=== PATIENT | female | born 1935 | race Caucasian/White ===

== ENCOUNTER 2021-12-12 13:09 | Inpatient (IN) | payer MEDICARE ==
[~2021-12-12] VITALS: Ht 162.6 cm; Wt 42.2 kg
[2021-12-12] MEDS ORDERED: OLAN5TAB3 PO (13:36)
[2021-12-12] MEDS ORDERED: ASPI-1169 PO (13:36)
[2021-12-12] MEDS ORDERED: MULT-188 PO (13:36)
[2021-12-12] MEDS ORDERED: CHOL200013 PO (13:36)
[2021-12-12] MEDS ORDERED: DOCU-141 PO (13:36)
[2021-12-12] MEDS ORDERED: MIRT-121 PO (13:36)
[2021-12-12] MEDS ORDERED: QUET25TA PO (13:36)
[2021-12-12] MEDS ORDERED: SENN-175 PO (13:36)
[2021-12-12] MEDS ORDERED: TRAZ-182 PO (13:36)
[2021-12-12] MEDS ORDERED: LEVO75TA PO (13:36)
--- NOTE | 2021-12-12 14:30 | NUR ---
COVID SWAB DONE AND SENT TO LAB
--- NOTE | 2021-12-12 14:32 | NUR ---
COVID SWAB SENT TO LAB
--- NOTE | 2021-12-12 15:00 | NUR ---
pt resting and asleepy confused fallow command
[2021-12-12 15:06] LABS: BASOPHILS % (AUTO) 0.3 % (0.0-2.0); EOSINOPHILS % (AUTO) 1.1 % (0.0-6.0); HEMATOCRIT 39 % (33-45); HEMOGLOBIN 13.2 g/dL (11.5-14.8); LYMPHOCYTES # (AUTO) 1.6 K/uL (0.8-4.8); MEAN CORPUSCULAR HGB CONC 34 g/dl (31.0-36.0); MEAN CORPUSCULAR VOLUME 91 fL (82-100); MONOCYTES # (AUTO) 0.8 K/uL (0.1-1.30); MONOCYTES % (AUTO) 6.8 % (2.0-12.0); NEUTROPHILS # (AUTO) 9.6 K/uL (1.8-8.9); NEUTROPHILS % (AUTO) 78.8 % (43.0-81.0); PLATELET COUNT (AUTO) 257 K/uL (150-450); RED BLOOD CELL COUNT(AUTO) 4.27 MIL/uL (4.0-5.2); WHITE BLOOD COUNT (AUTO) 12.2 K/uL (4.3-11.0)
[2021-12-12 15:40] LABS: ALBUMIN 3.1 g/dL (3.4-5.0); BILIRUBIN,DIRECT 0.1 mg/dL (0.0-0.2); BILIRUBIN,TOTAL 0.3 mg/dL (0.2-1.0); BILIRUBIN,URINE NEGATIVE (NEGATIVE); CALCIUM, SERUM 8.6 mg/dL (8.5-10.1); CREATININE 0.6 mg/dL (0.6-1.3); LEUKOCYTE ESTERASE ,URINE 3+ (NEGATIVE); NITRITE, URINE NEGATIVE (NEGATIVE); POTASSIUM 4.5 mmol/L (3.5-5.1); PROTEIN,URINE NEGATIVE (NEGATIVE); UGLUCOSE NEGATIVE (NEGATIVE)
[2021-12-12 15:49] LABS: COLOR,URINE YELLOW (YELLOW)
--- NOTE | 2021-12-12 16:00 | NUR ---
PT HANGERY SWALLOW WILL NO DIFECULTY no aspiration
[2021-12-12 16:15] LABS: RBC,URINE 0-2 /HPF (0-2); WBC,URINE 51-80 /HPF (0-3)
[2021-12-12 16:16] LABS: BACTERIA,URINE 4+ /HPF (None Seen); SQUAMOUS EPITHELIAL CELL,UR 0-2 /HPF (None Seen)
[2021-12-12] MEDS ORDERED: AZITHROMYCIN 500 MG in IV D5W 250 ML IV ONE (16:30)
[2021-12-12] MEDS ORDERED: CEFTRIAXONE 1GM BAG (ER ONLY) 1 GM/50 ML PIGGYBACK IV ONE (16:30)
--- NOTE | 2021-12-12 17:35 | NUR ---
HOLD ROCEPHINE UNTILL BLOOD CUTURE ORDER AND BLOOD TO DROW
--- NOTE | 2021-12-12 17:50 | NUR ---
BLOOD CULTURE X 2 BLOOD DROW BY LAB TACH at bed side ressume ROCEPHINE TO COMPLETED
--- NOTE | 2021-12-12 19:15 | NUR ---
HAND OFF MAUDE GLORIA
[2021-12-12] MEDS ORDERED: MAGNESIUM HYDROXIDE 30 ML UDC PO PRN (19:30)
[2021-12-12] MEDS ORDERED: ACETAMINOPHEN 325 MG TABLET PO PRN (19:30)
[2021-12-12] MEDS ORDERED: ONDANSETRON HCL/PF 4 MG/2 ML VIAL IVP PRN (19:30)
[2021-12-12] MEDS ORDERED: MAG HYDROX/AL HYDROX/SIMETH 30 ML UDC PO PRN (19:30)
[2021-12-12] MEDS ORDERED: Z GUARD REMEDY 4 OZ OINT TP PRN (19:30)
[2021-12-12] MEDS ORDERED: ZOLPIDEM TARTRATE 5 MG TABLET PO PRN (19:30)
--- NOTE | 2021-12-12 21:20 | NUR ---
REPORT GIVEN TO BROCK, RN FOR ADELE
[2021-12-12 21:29] VITALS: BP 153/85
--- NOTE | 2021-12-12 21:36 | NUR ---
PT TRANSFERRED TO 322-2 VIA ACLS PROTOCOL. VSS. ALL BELONGINGS WITH PT.
--- NOTE | 2021-12-12 21:50 | NUR ---
COMMERCIAL ELECTRICIANCUSTOMER PROJECT MANAGER NOTES RECEIVED PATIENT FROM ED VIA GURNEY AT 212 UNDER THE CARE OF DR. GUY WITH DX OF FTT, PNA AND UTI. PATIENT IS A/O X1, CONFUSED BUT VERY PLEASANT. PATIENT IS A POOR HISTORIAN AND ALL ADMISSION INFO TAKEN FROM MEDICAL RECORDS. ATTEMPTED TO CALL [facility] AT [phone] AND [phone] TO NO AVAIL. NO NEXT OF KIN LISTED. V/S TAKEN AND WNL. BREATHING EVEN AND NON-LABORED ON ROOM AIR. NOT IN APPARENT DISTRESS. DENIES PAIN AT THIS TIME. HAS RIGHT FOREARM IV ACCESS #20G AND SALINE LOCKED. NO S/S OF INFILTRATION NOTED. SKIN ASSESSMENT DONE AND PHOTOS TAKEN. SNACKS PROVIDED. ORIENTED PATIENT TO UNIT AND STAFF. ALL BELONGINGS ACCOUNTED FOR. SAFETY PRECAUTIONS IN PLACE: BED LOW AND LOCKED, SIDE RAILS UP X2, CALL LIGHT WITHIN REACH. WILL CONTINUE POC.
[2021-12-12] MEDS: SENNOSIDES 8.6 MG TABLET PO SCH (22:30)
[2021-12-12] MEDS: TRAZODONE 50 MG TABLET PO SCH (22:30)
[2021-12-12] MEDS: QUETIAPINE FUMARATE 25 MG TABLET PO SCH (22:30)
[2021-12-12] MEDS: MIRTAZAPINE 15 MG TABLET PO SCH (22:30)
[2021-12-12] MEDS: OLANZAPINE 5 MG TABLET PO SCH (22:30)
[2021-12-12] MEDS: IV D5/0.45 NACL 1,000 ML IV PRN (22:44)
[2021-12-13] VITALS: BP 115/70
[2021-12-13 04:32] VITALS: BP 131/82
[2021-12-13 06:41] LABS: BASOPHILS % (AUTO) 0.2 % (0.0-2.0); EOSINOPHILS % (AUTO) 1.5 % (0.0-6.0); HEMATOCRIT 33 % (33-45); HEMOGLOBIN 11.4 g/dL (11.5-14.8); LYMPHOCYTES # (AUTO) 1.4 K/uL (0.8-4.8); LYMPHOCYTES % (AUTO) 17.8 % (20.0-44.0); MEAN CORPUSCULAR HGB CONC 34 g/dl (31.0-36.0); MEAN CORPUSCULAR VOLUME 91 fL (82-100); MONOCYTES # (AUTO) 0.5 K/uL (0.1-1.30); MONOCYTES % (AUTO) 5.7 % (2.0-12.0); NEUTROPHILS % (AUTO) 74.8 % (43.0-81.0); PLATELET COUNT (AUTO) 244 K/uL (150-450); RED BLOOD CELL COUNT(AUTO) 3.63 MIL/uL (4.0-5.2)
--- NOTE | 2021-12-13 06:57 | NUR ---
ORGANIZATIONAL EFFECTIVENESS DIRECTOR CLOSING NOTES PATIENT LAYING COMFORTABLY IN BED. A/O X1, CONFUSED. FREQUENT RE-ORIENTATION NEEDED. NO SOB OR NOTED, TOLERATING ROOM AIR WELL. NOT IN ACUTE DISTRESS. NO C/O PAIN OR DISCOMFORT. AFEBRILE. ON TELE MONITOR READING SINUS RHYTHM AT 79 BPM. HAS RIGHT FOREARM IV ACCESS #20G WITH D5 1/2 NS RUNNING AT 75 ML/HR. INTACT, PATENT AND FLUSHING. ALL DUE MEDS GIVEN AND NEEDS ATTENDED. SAFETY PRECAUTIONS MAINTAINED. WILL ENDORSE TO NEXT SHIFT FOR ADELE.
[2021-12-13 07:11] LABS: CALCIUM, SERUM 8.3 mg/dL (8.5-10.1); CARBON DIOXIDE 26 mmol/L (21-32); CHLORIDE 108 mmol/L (98-107); CREATININE 0.5 mg/dL (0.6-1.3); GLUCOSE 94 mg/dL (74-106); MAGNESIUM 1.7 mg/dL (1.8-2.4); PHOSPHORUS 3.7 mg/dL (2.5-4.9); POTASSIUM 3.9 mmol/L (3.5-5.1); SODIUM SERUM 143 mmol/L (136-145); UREA NITROGEN, BLOOD 18 mg/dL (7-18)
[2021-12-13] MEDS: PANTOPRAZOLE 40 MG TABLET.DR PO SCH (07:18)
[2021-12-13] MEDS: LEVOTHYROXINE SODIUM 88 MCG TABLET PO SCH (07:18)
[2021-12-13 07:26] LABS: THYROID STIMULATING HORMONE 0.924 uIU/mL (0.358-3.74)
--- NOTE | 2021-12-13 07:38 | NUR ---
HANDLE MACHINE OPERATOR OPENING NOTES RECEIVED PATIENT AWAKE IN BED. PATIENT IS A/O X1, WITH CONFUSION. REORIENT THE PATIENT.NO SOB NOTED, TOLERATING ROOM AIR WELL. NO PAIN OR DISCOMFORT NOTED. AFEBRILE. ON TELE MONITOR READING SINUS RHYTHM . RIGHT FOREARM IV ACCESS #20G WITH D5 1/2 NS RUNNING AT 75 ML/HR. INTACT, PATENT AND FLUSHING. ALL SAFETY PRECAUTIONS MAINTAINED. WILL CONTINUE TO MONITOR CLOSELY.
[2021-12-13 08:11] VITALS: BP 152/88
[2021-12-13] MEDS: ASPIRIN 81 MG TAB.CHEW PO SCH (09:05)
[2021-12-13] MEDS: MULTIVIT W/MINERALS 1 TAB TABLET PO SCH (09:05)
[2021-12-13] MEDS: DOCUSATE SODIUM 100 MG CAPSULE PO SCH ×2 (09:06→16:02)
[2021-12-13] MEDS: OLANZAPINE 5 MG TABLET PO SCH ×2 (09:06→21:10)
[2021-12-13] MEDS: CHOLECALCIFEROL 1,000 UNIT TABLET (VIT D3) PO SCH (09:07)
[2021-12-13] MEDS ORDERED: MAGNESIUM OXIDE 400 MG TABLET PO ONE (10:00)
--- NOTE | 2021-12-13 11:49 | NUR ---
REFERENCE SERVICES HEAD NOTE SPOKE WITH KITA OF [facility] AND [facility] AND SAID THAT SHE WILL FAX PATIENT'S POLST ONCE SHE GETS TO THE FACILITY. ENDORSED ACCORDINGLY.
[2021-12-13] MEDS: IV D5/0.45 NACL 1,000 ML IV PRN (13:02)
--- NOTE | 2021-12-13 14:40 | NUR ---
Stonemason Supervisor Consult SW received a consult request for no next of kin. Pt. is a 86 y.o. white female who was admitted for pneumonia. ISABEL met with pt. at bedside. Pt. was unresponsive and SW got support from nurse Flores to wake pt. Pt. was awake is alert and oriented x1. Pt. appeared confused and disoriented was unable answer questions. SW inquired re next of kin/ family or friends that she might provide information for but pt. was unable to respond. ISABEL discussed with nurse Flores that staff have been attempting to contact her facility for more information. SW called [facility] ([phone]) and obtained contact information for pt.'s power of estate planning attorney (Estrellita Carey [phone]) and was informed that she [place] out of [place]. ISABEL discussed plan with nurse in which she was agreeable.
[2021-12-13] MEDS: CEFTRIAXONE 1 G in IV D5W 50 ML IV SCH (15:28)
[2021-12-13] MEDS: AZITHROMYCIN 500 MG in IV D5W 250 ML IV SCH (16:02)
[2021-12-13 16:38] VITALS: BP 132/68
[2021-12-13] MEDS: ENSURE ENLIVE 237 ML LIQUID (VANILLA) PO SCH ×2 (17:29→17:59)
--- NOTE | 2021-12-13 18:00 | NUR ---
RN NOTES CALLED [facility] WITH PHONE NUMBER [phone] AT 1000 AM TO GET INFORMATION ABOUT THE PATIENT'S VACCINATION RECORDS AND POLST STATUS AND LEFT MASSAGE, NO ONE CALLED BACK TILL 1812.
--- NOTE | 2021-12-13 18:32 | NUR ---
MAINTENANCE OPERATOR CLOSING NOTES PATIENT AWAKE IN BED. PATIENT IS A/O X1, WITH CONFUSION. REORIENT THE PATIENT.NO SOB NOTED, TOLERATING ROOM AIR WELL. NO PAIN OR DISCOMFORT NOTED. AFEBRILE. ON TELE MONITOR READING SINUS RHYTHM . RIGHT FOREARM IV ACCESS #24G WITH D5 1/2 NS RUNNING AT 75 ML/HR. INTACT, PATENT AND FLUSHING. ALL DUE MEDS GIVEN ORDERED. KEPT HOB ELEVATE DFOR ASPIRATION PRECAUTION. ALL SAFETY PRECAUTIONS MAINTAINED. BED LOCKED IN THE LOWEST POSITION. CALL LIGHT AND TABLE IN EASY REACH, BED ALARM ON. WILL ENDORSE FOR ADELE.
--- NOTE | 2021-12-13 19:30 | NUR ---
SYSTEM CONFIGURATION SPECIALIST OPENING NOTE RECEIVED PT AWAKE IN BED. A/O X1 WITH EPISODES OF CONFUSION AND ABLE TO MAKE NEEDS KNOWN. PT STABLE ON ROOM AIR. NO SOB OR S/S OF REPSIRATORY DISTRESS. BREATHING EVEN AND UNLABORED. ON EXTERNAL DEPUTY CHIEF COUNSEL READING SR. IV ACCESS RFA 20G RUNNING D5 1/2 NS @ 75 ML/HR, INTACT AND PATENT. SAFETY PRECAUTIONS IN PLACE. BED IN LOWEST LOCKED POSITION, HOB ELEVATED 40 DEGREES, SIDE RAILS UP X3, AND CALL LIGHT AND TABLE WITHIN REACH. ALL NEEDS MET AT THIS TIME.
[2021-12-13 20:00] VITALS: BP 134/52
[2021-12-13] MEDS: TRAZODONE 50 MG TABLET PO SCH (21:10)
[2021-12-13] MEDS: QUETIAPINE FUMARATE 25 MG TABLET PO SCH (21:10)
[2021-12-13] MEDS: ENOXAPARIN SODIUM 40 MG/0.4 ML DISP.SYRIN SQ SCH (21:10)
[2021-12-13] MEDS: MIRTAZAPINE 15 MG TABLET PO SCH (21:10)
[2021-12-13] MEDS: SENNOSIDES 8.6 MG TABLET PO SCH (21:10)
[2021-12-14] VITALS: BP 165/85
--- NOTE | 2021-12-14 00:53 | NUR ---
RN NOTE PT NOTED WITH BP 165/85 AND HR SUSTAINED IN THE 120S. ALSO NOTED WITH JVD. NO SOB OR ACUTE DISTRESS NOTED. HELD IVF FOR NOW. INFORMED DROP WIRER KAILYN WITH NEW ORDER FOR METOPROLOL TARTRATE 25 MG PO ONCE. ADMINISTERED MEDICATION ORDERED. WILL CONTINUE TO MONITOR.
[2021-12-14] MEDS ORDERED: METOPROLOL SUCCINATE 25 MG TAB.SR.24H PO ONE (01:00)
[2021-12-14] MEDS ORDERED: METOPROLOL TARTRATE 25 MG TABLET PO ONE (01:00)
--- NOTE | 2021-12-14 02:17 | NUR ---
RN NOTE CURRENT BP 154/84 AND HR SR 86. JVD DECREASED. IVF STILL ON HOLD. CHARGE NURSE JOSEY PRATER.
[2021-12-14 04:00] VITALS: BP 156/90
[2021-12-14 06:14] LABS: BASOPHILS % (AUTO) 0.1 % (0.0-2.0); HEMATOCRIT 39 % (33-45); HEMOGLOBIN 13.1 g/dL (11.5-14.8); LYMPHOCYTES # (AUTO) 0.6 K/uL (0.8-4.8); LYMPHOCYTES % (AUTO) 3.7 % (20.0-44.0); MEAN CORPUSCULAR HGB CONC 34 g/dl (31.0-36.0); MEAN CORPUSCULAR VOLUME 90 fL (82-100); MONOCYTES # (AUTO) 0.3 K/uL (0.1-1.30); MONOCYTES % (AUTO) 1.8 % (2.0-12.0); NEUTROPHILS # (AUTO) 15.6 K/uL (1.8-8.9); NEUTROPHILS % (AUTO) 94.4 % (43.0-81.0); PLATELET COUNT (AUTO) 289 K/uL (150-450); WHITE BLOOD COUNT (AUTO) 16.5 K/uL (4.3-11.0)
--- NOTE | 2021-12-14 06:41 | NUR ---
HAND I THERMAL CUTTER CLOSING NOTE PT AWAKE IN BED. A/O X1 WITH EPISODES OF CONFUSION AND ABLE TO MAKE NEEDS KNOWN. PT STABLE ON ROOM AIR. NO SOB OR S/S OF RESPIRATORY DISTRESS. BREATHING EVEN AND UNLABORED. ON EXTERNAL REVENUE OFFICER READING SR 94 BPM. IV ACCESS RFA 20G, INTACT AND PATENT. ALL DUE MEDS GIVEN ORDERED. KEPT CLEAN AND DRY. TURNED AND REPOSITIONED Q2H. SAFETY PRECAUTIONS IN PLACE AT ALL TIMES. BED IN LOWEST LOCKED POSITION, HOB ELEVATED 40 DEGREES, SIDE RAILS UP X3, AND CALL LIGHT AND TABLE WITHIN REACH. ALL NEEDS MET AT THIS TIME AND WILL ENDORSE TO ONCOMING NURSE FOR ADELE.
[2021-12-14 06:49] LABS: CALCIUM, SERUM 8.9 mg/dL (8.5-10.1); CREATININE 0.7 mg/dL (0.6-1.3); MAGNESIUM 1.6 mg/dL (1.8-2.4); PHOSPHORUS 3.7 mg/dL (2.5-4.9); POTASSIUM 4.3 mmol/L (3.5-5.1)
[2021-12-14 08:00] VITALS: BP 155/84
[2021-12-14] MEDS: PANTOPRAZOLE 40 MG TABLET.DR PO SCH (08:20)
[2021-12-14] MEDS: LEVOTHYROXINE SODIUM 88 MCG TABLET PO SCH (08:20)
[2021-12-14] MEDS: ENSURE ENLIVE 237 ML LIQUID (VANILLA) PO SCH ×3 (08:23→18:10)
[2021-12-14] MEDS: OLANZAPINE 5 MG TABLET PO SCH ×2 (08:28→21:06)
[2021-12-14] MEDS: MULTIVIT W/MINERALS 1 TAB TABLET PO SCH (08:28)
[2021-12-14] MEDS: DOCUSATE SODIUM 100 MG CAPSULE PO SCH ×2 (08:28→16:53)
[2021-12-14] MEDS: ASPIRIN 81 MG TAB.CHEW PO SCH (08:29)
[2021-12-14] MEDS: CHOLECALCIFEROL 1,000 UNIT TABLET (VIT D3) PO SCH (08:29)
[2021-12-14] MEDS ORDERED: MAGNESIUM OXIDE 400 MG TABLET PO ONE (11:00)
[2021-12-14 12:00] VITALS: BP 132/79
--- NOTE | 2021-12-14 14:49 | NUR ---
COSMETIC MANAGER OPENING NOTE RECEIVED PT AWAKE IN BED. A/O X1 WITH EPISODES OF CONFUSION AND ABLE TO MAKE NEEDS KNOWN. PT STABLE ON ROOM AIR. NO SOB OR S/S OF RESPIRATORY DISTRESS. BREATHING EVEN AND UNLABORED. ON EXTERNAL STAINED GLASS INSTALLER READING SR. WITH IV ACCESS RFA INTACT AND PATENT. SAFETY PRECAUTIONS IN PLACE. BED IN LOWEST LOCKED POSITION, HOB ELEVATED 40 DEGREES, SIDE RAILS UP X3, AND CALL LIGHT AND TABLE WITHIN REACH. ALL NEEDS MET AT THIS TIME.WILL MONITOR. Addendum: 12/14/21 at 1901 by LAITH PRINGLE RN CORRECT TIME OF NOTE IS 0730.
--- NOTE | 2021-12-14 15:19 | NUR ---
PERSONNEL ASSOCIATE NOTES RECEIVED PT'S POL FROM [facility], SPOKE WITH ABBY, PT IS DNR/DNI, DR. GUY INFORMED AND ORDERED DNR/DNI, NOTED AND CARRIED OUT, CO-SIGNED WITH A 2ND RN.
[2021-12-14] MEDS: CEFTRIAXONE 1 G in IV D5W 50 ML IV SCH (15:32)
[2021-12-14 16:00] VITALS: BP 151/76
[2021-12-14] MEDS: AZITHROMYCIN 500 MG in IV D5W 250 ML IV SCH (16:48)
[2021-12-14] MEDS ORDERED: hydrALAZINE HCL 25 MG TABLET PO PRN (18:00)
--- NOTE | 2021-12-14 18:38 | NUR ---
FAA CERTIFIED POWERPLANT MECHANIC OPENING NOTE PT IN BED. A/O X1 WITH EPISODES OF CONFUSION AND ABLE TO MAKE NEEDS KNOWN. PT STABLE ON ROOM AIR. NO SOB OR S/S OF RESPIRATORY DISTRESS. BREATHING EVEN AND UNLABORED. ON EXTERNAL BLEACH SUPERVISOR READING SR. WITH IV ACCESS RFA INTACT AND PATENT. DUE MEDS GIVEN. KEPT COMFORTABLE. SAFETY PRECAUTIONS IN PLACE. BED IN LOWEST LOCKED POSITION, HOB ELEVATED 40 DEGREES, SIDE RAILS UP X3, AND CALL LIGHT AND TABLE WITHIN REACH. ALL NEEDS MET AT THIS TIME. ENDORSED TO INCOMING NURSE. Addendum: 12/14/21 at 1901 by LAITH PRINGLE RN CLOSING NOTE
--- NOTE | 2021-12-14 19:30 | NUR ---
BATTERY CONTAINER FINISHING HAND OPENING NOTE RECEIVED PT AWAKE IN BED. A/O X1 WITH EPISODES OF CONFUSION AND ABLE TO MAKE NEEDS KNOWN. PT STABLE ON ROOM AIR. NO SOB OR S/S OF RESPIRATORY DISTRESS. BREATHING EVEN AND UNLABORED. ON EXTERNAL CLAY ARTISAN READING SR. IV ACCESS RFA 20G RUNNING D5 1/2 NS @ 75 ML/HR, INTACT AND PATENT. SAFETY PRECAUTIONS IN PLACE. BED IN LOWEST LOCKED POSITION, HOB ELEVATED 40 DEGREES, SIDE RAILS UP X3, AND CALL LIGHT AND TABLE WITHIN REACH. ALL NEEDS MET AT THIS TIME.
[2021-12-14 20:00] VITALS: BP_SYST 113; BP_SYST 130; BP_DIAS 39; BP_DIAS 76
[2021-12-14] MEDS: QUETIAPINE FUMARATE 25 MG TABLET PO SCH (21:06)
[2021-12-14] MEDS: SENNOSIDES 8.6 MG TABLET PO SCH (21:06)
[2021-12-14] MEDS: TRAZODONE 50 MG TABLET PO SCH (21:06)
[2021-12-14] MEDS: MIRTAZAPINE 15 MG TABLET PO SCH (21:07)
[2021-12-14] MEDS: ENOXAPARIN SODIUM 40 MG/0.4 ML DISP.SYRIN SQ SCH (21:08)
[2021-12-15] VITALS: BP 157/57
[2021-12-15 04:00] VITALS: BP 137/86
--- NOTE | 2021-12-15 06:42 | NUR ---
VACUUM TESTER CANS CLOSING NOTE PT AWAKE IN BED. A/O X1 WITH EPISODES OF CONFUSION AND ABLE TO MAKE NEEDS KNOWN. PT STABLE ON ROOM AIR. NO SOB OR S/S OF RESPIRATORY DISTRESS. BREATHING EVEN AND UNLABORED. ON EXTERNAL NICKEL OPERATOR READING SR 81 BPM. IV ACCESS RFA 20G, INTACT AND PATENT. ALL DUE MEDS GIVEN ORDERED. KEPT CLEAN AND DRY. TURNED AND REPOSITIONED Q2H. SAFETY PRECAUTIONS IN PLACE AT ALL TIMES. BED IN LOWEST LOCKED POSITION, HOB ELEVATED 40 DEGREES, SIDE RAILS UP X3, AND CALL LIGHT AND TABLE WITHIN REACH. ALL NEEDS MET AT THIS TIME AND WILL ENDORSE TO ONCOMING NURSE FOR ADELE.
[2021-12-15 06:58] LABS: CALCIUM, SERUM 8.6 mg/dL (8.5-10.1); CREATININE 0.6 mg/dL (0.6-1.3); MAGNESIUM 2.2 mg/dL (1.8-2.4); PHOSPHORUS 3.7 mg/dL (2.5-4.9); POTASSIUM 3.7 mmol/L (3.5-5.1)
--- NOTE | 2021-12-15 07:00 | NUR ---
ELECTRICAL POWER ENGINEER OPENING NOTES PATIENT LAYING IN BED, A/O X 1, TOLERATING WELL ON ROOM AIR WITH NO S/S RESPIRATORY DISTRESS. NO COMPLAINTS OF PAIN OR DISCOMFORT AT THIS TIME. TELE MONITOR IN PLACE READING SR 67. R FA # 20 G IV CLEAN, INTACT, AND INFUSING D5 1/2 NS @ 75 ML/HR. SAFETY MEASURES IN PLACE: BED IN LOWEST LOCKED POSITION, SIDE RAILS UP X 2, CALL LIGHT WITHIN REACH. WILL CONTINUE TO MONITOR.
[2021-12-15 07:15] LABS: BASOPHILS % (AUTO) 0.2 % (0.0-2.0); EOSINOPHILS % (AUTO) 0.5 % (0.0-6.0); HEMATOCRIT 36 % (33-45); HEMOGLOBIN 12.1 g/dL (11.5-14.8); LYMPHOCYTES # (AUTO) 1.4 K/uL (0.8-4.8); LYMPHOCYTES % (AUTO) 14.1 % (20.0-44.0); MEAN CORPUSCULAR HGB CONC 33 g/dl (31.0-36.0); MEAN CORPUSCULAR VOLUME 94 fL (82-100); MONOCYTES # (AUTO) 0.6 K/uL (0.1-1.30); MONOCYTES % (AUTO) 6.3 % (2.0-12.0); NEUTROPHILS # (AUTO) 7.6 K/uL (1.8-8.9); NEUTROPHILS % (AUTO) 78.9 % (43.0-81.0); PLATELET COUNT (AUTO) 266 K/uL (150-450); RED BLOOD CELL COUNT(AUTO) 3.84 MIL/uL (4.0-5.2); WHITE BLOOD COUNT (AUTO) 9.7 K/uL (4.3-11.0)
[2021-12-15] MEDS: ENSURE ENLIVE 237 ML LIQUID (VANILLA) PO SCH ×3 (07:47→17:13)
[2021-12-15] MEDS: LEVOTHYROXINE SODIUM 88 MCG TABLET PO SCH (07:47)
[2021-12-15] MEDS: PANTOPRAZOLE 40 MG TABLET.DR PO SCH (07:47)
[2021-12-15 08:00] VITALS: BP 151/79
[2021-12-15] MEDS: MULTIVIT W/MINERALS 1 TAB TABLET PO SCH (08:15)
[2021-12-15] MEDS: OLANZAPINE 5 MG TABLET PO SCH ×2 (08:15→21:23)
[2021-12-15] MEDS: ASPIRIN 81 MG TAB.CHEW PO SCH (08:15)
[2021-12-15] MEDS: CHOLECALCIFEROL 1,000 UNIT TABLET (VIT D3) PO SCH (08:15)
[2021-12-15] MEDS: DOCUSATE SODIUM 100 MG CAPSULE PO SCH ×2 (08:15→16:15)
[2021-12-15 12:00] VITALS: BP 129/79
[2021-12-15] MEDS: CEFTRIAXONE 1 G in IV D5W 50 ML IV SCH (15:24)
[2021-12-15 16:00] VITALS: BP 144/80
[2021-12-15] MEDS: AZITHROMYCIN 500 MG in IV D5W 250 ML IV SCH (16:14)
--- NOTE | 2021-12-15 19:00 | NUR ---
COMMUNICATION ELECTRONIC TECHNICIAN CLOSING NOTES PATIENT LAYING IN BED, A/O X 1, TOLERATING WELL ON ROOM AIR WITH NO S/S RESPIRATORY DISTRESS. NO COMPLAINTS OF PAIN OR DISCOMFORT AT THIS TIME. TELE MONITOR IN PLACE READING SR. NO IV ACCESS AT THIS TIME, WILL ENDORSE TO MECHANICAL DESIGNER. SAFETY MEASURES IN PLACE: BED IN LOWEST LOCKED POSITION, SIDE RAILS UP X 2, CALL LIGHT WITHIN REACH. ALL NEEDS MET. WILL ENDORSE TO MECHANICAL DESIGNER FOR ADELE.
--- NOTE | 2021-12-15 19:30 | NUR ---
DOCUMENT PHOTOGRAPHER OPENING NOTE RECEIVED PT AWAKE IN BED. A/O X1 WITH EPISODES OF CONFUSION AND ABLE TO MAKE NEEDS KNOWN. PT STABLE ON ROOM AIR. NO SOB OR S/S OF RESPIRATORY DISTRESS. BREATHING EVEN AND UNLABORED. ON EXTERNAL CERTIFIED WELLNESS PROGRAM COORDINATOR READING SR. NO IV ACCESS AT THIS TIME DUE TO INFILTRATION, WILL REINSERT. SAFETY PRECAUTIONS IN PLACE. BED IN LOWEST LOCKED POSITION, HOB ELEVATED 40 DEGREES, SIDE RAILS UP X3, AND CALL LIGHT AND TABLE WITHIN REACH. ALL NEEDS MET AT THIS TIME.
[2021-12-15 20:00] VITALS: BP 103/69
[2021-12-15] MEDS: SENNOSIDES 8.6 MG TABLET PO SCH (21:23)
[2021-12-15] MEDS: MIRTAZAPINE 15 MG TABLET PO SCH (21:23)
[2021-12-15] MEDS: TRAZODONE 50 MG TABLET PO SCH (21:23)
[2021-12-15] MEDS: QUETIAPINE FUMARATE 25 MG TABLET PO SCH (21:23)
[2021-12-15] MEDS: ENOXAPARIN SODIUM 40 MG/0.4 ML DISP.SYRIN SQ SCH (21:24)
[2021-12-16] VITALS: BP 134/77
[2021-12-16 04:00] VITALS: BP 136/72
--- NOTE | 2021-12-16 06:44 | NUR ---
REPAIR TABLE OPERATOR CLOSING NOTE PT AWAKE IN BED. A/O X1 WITH EPISODES OF CONFUSION AND ABLE TO MAKE NEEDS KNOWN. PT STABLE ON ROOM AIR. NO SOB OR S/S OF RESPIRATORY DISTRESS. BREATHING EVEN AND UNLABORED. ON EXTERNAL STAGE RIGGER READING SR 68 BPM. IV ACCESS LFA 20G, INTACT AND PATENT. ALL DUE MEDS GIVEN ORDERED. SAFETY PRECAUTIONS IN PLACE AT ALL TIMES. BED IN LOWEST LOCKED POSITION, HOB ELEVATED 40 DEGREES, SIDE RAILS UP X3, AND CALL LIGHT AND TABLE WITHIN REACH. ALL NEEDS MET AT THIS TIME AND WILL ENDORSE TO ONCOMING NURSE FOR ADELE.
[2021-12-16 06:59] LABS: BASOPHILS % (AUTO) 0.3 % (0.0-2.0); HEMATOCRIT 32 % (33-45); HEMOGLOBIN 10.8 g/dL (11.5-14.8); LYMPHOCYTES # (AUTO) 2.2 K/uL (0.8-4.8); LYMPHOCYTES % (AUTO) 20.5 % (20.0-44.0); MEAN CORPUSCULAR HGB CONC 34 g/dl (31.0-36.0); MEAN CORPUSCULAR VOLUME 94 fL (82-100); MONOCYTES # (AUTO) 0.7 K/uL (0.1-1.30); MONOCYTES % (AUTO) 6.3 % (2.0-12.0); NEUTROPHILS # (AUTO) 7.5 K/uL (1.8-8.9); NEUTROPHILS % (AUTO) 70.9 % (43.0-81.0); PLATELET COUNT (AUTO) 246 K/uL (150-450); RED BLOOD CELL COUNT(AUTO) 3.45 MIL/uL (4.0-5.2); WHITE BLOOD COUNT (AUTO) 10.6 K/uL (4.3-11.0)
--- NOTE | 2021-12-16 07:20 | NUR ---
BIOPSYCHOLOGIST OPENING NOTES RECEIVED PATIENT AWAKE IN BED. PATIENT IS A/O X1, WITH CONFUSION. REORIENT THE PATIENT.NO SOB NOTED, TOLERATING ROOM AIR WELL. NO PAIN OR DISCOMFORT NOTED. AFEBRILE. ON TELE MONITOR READING SINUS RHYTHM . LEFT FOREARM IV ACCESS #20G WITH D5 1/2 NS RUNNING AT 75 ML/HR. INTACT, PATENT AND FLUSHING WELL. ALL SAFETY PRECAUTIONS MAINTAINED. BED LOCKED IN THE LOWEST POSITION. CALL LIGHT AND TABLE IN EASY REACH. SIDE RAILS UP TIMES 2. WILL CONTINUE TO MONITOR CLOSELY.
[2021-12-16 07:28] LABS: CALCIUM, SERUM 8.2 mg/dL (8.5-10.1); CREATININE 0.7 mg/dL (0.6-1.3); MAGNESIUM 2.1 mg/dL (1.8-2.4); PHOSPHORUS 3.5 mg/dL (2.5-4.9)
[2021-12-16] MEDS: LEVOTHYROXINE SODIUM 88 MCG TABLET PO SCH (07:29)
[2021-12-16] MEDS: PANTOPRAZOLE 40 MG TABLET.DR PO SCH (07:29)
[2021-12-16 08:00] VITALS: BP 123/60
[2021-12-16] MEDS: ENSURE ENLIVE 237 ML LIQUID (VANILLA) PO SCH ×2 (08:07→12:11)
[2021-12-16] MEDS: ASPIRIN 81 MG TAB.CHEW PO SCH (08:12)
[2021-12-16] MEDS: CHOLECALCIFEROL 1,000 UNIT TABLET (VIT D3) PO SCH (08:12)
[2021-12-16] MEDS: DOCUSATE SODIUM 100 MG CAPSULE PO SCH (08:12)
[2021-12-16] MEDS: MULTIVIT W/MINERALS 1 TAB TABLET PO SCH (08:12)
[2021-12-16] MEDS: OLANZAPINE 5 MG TABLET PO SCH (08:12)
[2021-12-16] MEDS: IV D5/0.45 NACL 1,000 ML IV PRN (13:09)
--- NOTE | 2021-12-16 13:55 | NUR ---
RN NOTES CALLED [facility] BY PHONE NUMBER [phone] AT 1356 PM AND GAVE REPORT TO [facility] . ESTIMATED TRANSFER TIME 1600.
[2021-12-16] MEDS: CEFTRIAXONE 1 G in IV D5W 50 ML IV SCH (15:03)
--- NOTE | 2021-12-16 17:05 | NUR ---
BUSINESS SERVICES ASSISTANT NOTES DISCHARGE PATIENT IN STABLE CONDITION WITH STABLE VITAL SIGN. NO PAIN NOTED. NO SOB NOTED.NO DISTRESS NOTED. ALL DISCHARGE INSTRUCTIONS GIVEN TO [facility] JUANI JACKSON. ALL THE BELONGINGS ACCOUNTED AND SIGNED BY ME AND JUANI TOVAR SINCE PATIENT IS UNABLE TO SIGN. REMOVED IV SITE. COVERED WITH DRY DRESSING. NO BLEEDING NOTED. ID BAND REMOVED. PATIENT DNR/DNI. PATIENT LEFT HOSPITAL IN STABLE CONDITION WITH STABLE VITAL SIGNS. ALL NEEDS ATTENDED. PATIENT LEFT HOSPITAL WITH AMBULANCE AND 2 MT AT 1635 . MD AND CHARGE NURSE AWARE OF THE DISCHARGE.
== END 2021-12-16 16:30 | DRG 178 ==
LOC: ER 13:11 → TELE 21:02
PROVIDERS: ADMIT Student in an Organized Health Care Education/Training Program; ATTEND Student in an Organized Health Care Education/Training Program
DX: J69.0 Pneumonitis due to inhalation of food and vomit (principal); E44.0 Moderate protein-calorie malnutrition; Z68.1 Body mass index [BMI] 19.9 or less, adult; N39.0 Urinary tract infection, site not specified; R62.7 Adult failure to thrive; I11.0 Hypertensive heart disease with heart failure; E86.0 Dehydration; E03.9 Hypothyroidism, unspecified; E88.09 Other disorders of plasma-protein metabolism, not elsewhere classified; I50.9 Heart failure, unspecified; Z79.82 Long term (current) use of aspirin; G30.9 Alzheimer's disease, unspecified; F02.80 Dementia in other diseases classified elsewhere, unspecified severity, without behavioral disturbance, psychotic disturbance, mood disturbance, and anxiety; F09 Unspecified mental disorder due to known physiological condition; B96.20 Unspecified Escherichia coli [E. coli] as the cause of diseases classified elsewhere; Z20.822 Contact with and (suspected) exposure to COVID-19; I25.2 Old myocardial infarction; Z79.890 Hormone replacement therapy
CPT/HCPCS: 36415; 71045-TC; 80048-TC; 80076-TC; 81001; 83735-TC; 84100-TC; 84443-TC; 85025-TC; 87040-TC; 87081-TC; 87086-TC; 87186-TC; 92526; 92611-TC; 97112-TC; 97530-TC; C9803; G0378; J0456; J0696; J1650; J3490; J7060